=== PATIENT | female | born 1975 | race Hispanic/Latino ===

== ENCOUNTER 2021-12-05 22:09 | Emergency (ER) | payer OTHER ==
[~2021-12-05] VITALS: Ht 165.1 cm; Wt 67.6 kg
[2021-12-05 22:30] VITALS: BP 140/80
[2021-12-05] MEDS ORDERED: PROCHLORPERAZINE 10MG/2ML INJ ONE (22:48)
[2021-12-05] MEDS ORDERED: PROCHLORPERAZINE 10MG/2ML INJ IV ONE (23:00)
[2021-12-05] MEDS ORDERED: KETOROLAC 15MG/ML VIAL (15MG/ML) IV ONE (23:00)
[2021-12-05] MEDS ORDERED: DiphenhydrAMINE HCL 50 MG/ML VIAL IV ONE (23:00)
[2021-12-05] MEDS ORDERED: 0.9% NACL 500ML IV.SOLN 500 ML IV ONE (23:00)
[2021-12-05] MEDS ORDERED: FIORIT PO (23:46)
== END 2021-12-05 23:50 | disposition home or self-care (01) ==
LOC: EDH 22:09
DX: G43.909 Migraine, unspecified, not intractable, without status migrainosus (principal); R11.2 Nausea with vomiting, unspecified; Z79.1 Long term (current) use of non-steroidal anti-inflammatories (NSAID)
CPT/HCPCS: 96361; 96374; 96375; 99284; J0780; J1200; J1885; J7040